=== PATIENT | female | born 1960 | race Caucasian/White ===

== ENCOUNTER 2016-06-11 10:17 | Emergency (ER) | payer OTHER ==
[~2016-06-11] VITALS: Wt 97.0 kg
[~2016-06-11 10:17] MED LIST: ACET1TAB40 PO; ACET325T33 PO; ALBU8.5H3 INH; AZIT250T94 PO; BENZ100C70 PO; CAPT25TA47 PO; CHOL100062 PO; IBUP-1542 PO; LEVO750T25 PO; LEVO88TA PO; METF500T4 PO; PARO40TA48 PO; PIOG30TA19 PO; PROM6.25 PO; SIMV40TA2 PO; TRAZ100T15 PO
[2016-06-11] MEDS ORDERED: HYDROCODONE/APAP (5/325) TAB PO ONE (12:00)
--- NOTE | 2016-06-11 12:51 | RADRPT ---
PROCEDURE: XR Humerus. CLINICAL INDICATION: Fell, pain. TECHNIQUE: AP and lateral views of the left humerus were performed. COMPARISON: None. FINDINGS: There is a comminuted, nondisplaced fracture through the surgical neck of the humerus with extension into the greater tuberosity. There is no significant angulation P IMPRESSION: 1. Nondisplaced, comminuted fracture of the surgical neck with extension into the greater tuberosit y. RPTAT: [facility] Physician Katie Date Time Electronically viewed and signed by Darren Ferguson Physician on 06/11/2016 12:51 /
--- NOTE | 2016-06-11 13:19 | RADRPT ---
PROCEDURE: US left upper extremity veins. CLINICAL INDICATION: Left arm pain and swelling. TECHNIQUE: Multiple longitudinal and transverse images of the left upper extremity venous tree was obtained with molina scale, pulsed Doppler, and color Doppler imaging. COMPARISON: None available FINDINGS: The left internal jugular, subclavian, axillary, brachial, basilic, cephalic, radial, and ulnar vein s are patent. There is normal flow with augmentation and compressibility throughout. There is no th rombus or occlusion. IMPRESSION: 1. Normal venous system of the left upper extremity. No evidence of thrombus or occlusion. RPTAT: QQ .Philippe Shetty MD, MD Date Time Electronically viewed and signed by .Philippe Shetty MD, on 06/11/2016 13:18 .R/
--- NOTE | 2016-06-11 13:20 | RADRPT ---
PROCEDURE: Ultrasound of the left upper arm. CLINICAL INDICATION: Palpable lesion in the left upper arm. TECHNIQUE: High-resolution sonography of the left upper arm at the site of the palpable lesion was performed in the axial and sagittal planes. COMPARISON: None FINDINGS: There is no fluid collection or mass. There is no abnormality at the site of the palpable lesion. IMPRESSION: 1. No abnormality at the site of the palpable lesion. 2. Any further management regarding the palpable lesion should be based on clinical grounds. RPTAT: QQ .Philippe Shetty MD, MD Date Time Electronically viewed and signed by .Philippe Shetty MD, on 06/11/2016 13:20 .R/
[2016-06-11] MEDS ORDERED: HYDR-906 PO (13:41)
--- NOTE | 2016-06-11 13:57 | ERD ---
ER Documentation Chief Complaint Date/Time DATE: 06/11/16 TIME: 13:45 Chief Complaint MECHANICAL FALL 06/07/16 HPI 55-year-old female complaining of left arm pain 5 days. Patient stated that she went on a cruise, on the first day when they were doing the safety/ evacuation drill, she tripped on a step and fell. She landed on her left side. She had obtained x-ray on board, and was told that there was no fracture. However, the imaging was not high-quality. She was given pain medications on the ship as well. Patient reports continued severe pain since then. The medication she was given had not helped. The pain is constant and throbbing. Denies numbness or tingling in her extremities. ROS All systems reviewed and are negative except as per history of present illness. Medications Home Meds Active Scripts Hydrocodone/Acetaminophen ([place] 5-325 Tablet) 1 Each Tablet, 1 TAB PO Q6H Y for PAIN, #7 TAB Prov:SVETA JACKSON SUPERVISOR BOARDING 06/11/16 Acetaminophen* (Tylenol*) 325 Mg Tablet, 2 TAB PO Q6 Y for PAIN AND OR ELEVATED TEMP, #20 TAB Prov:BERENICE GRAHAM PA-C 03/30/16 Albuterol Sulfate* (Proair HFA*) 8.5 Gm Hfa.aer.ad, 2 PUFF INH Q4, #1 INHALER Prov:BERENICE GRAHAM PA-C 03/30/16 Levofloxacin* (Levaquin*) 750 Mg Tablet, 750 MG PO DAILY for 5 Days, TAB Prov:BERENICE GRAHAM PA-C 03/30/16 Ibuprofen* (Motrin*) 600 Mg Tab, 600 MG PO Q6H Y for PAIN, #20 TAB Prov:SANTHOSH NOGUEIRA MD 05/24/15 Acetaminophen-Codeine* (Acetaminophen-Cod #3*) 300-30 Mg Tab, 1 TAB PO Q4H Y for PAIN, #14 TAB Prov:SANTHOSH NOGUEIRA MD 05/24/15 Promethazine w/Codeine* (Phenergan w/Codeine* Syrup) 5 Ml Syrup, 5 ML PO Q4H Y for COUGH, #4 OZ Prov:MARIAN DIAZ 11/26/14 Benzonatate* (Tessalon Perle*) 100 Mg Capsule, 200 MG PO Q8H Y for COUGH, #21 CAP Prov:MARIAN DIAZ 11/26/14 Azithromycin* (Zithromax*) 250 Mg Tablet, 250 MG PO .ZPACK DIRECTED, #6 TAB TAKE 500 MG (2 TABS) THE FIRST DAY THEN 250 MG (1 TAB) DAYS 2-5 Prov:MARIAN DIAZ 11/26/14 Reported Medications Cholecalciferol* (Vitamin D3*) 1,000 Unit Tablet, 1000 UNIT PO DAILY, TAB 11/26/14 Simvastatin* (Zocor*) 40 Mg Tablet, 40 MG PO HS, TAB 11/26/14 Paroxetine Hcl* (Paxil*) 40 Mg Tablet, 40 MG PO DAILY, TAB 11/26/14 Levothyroxine Sodium* (Synthroid*) 88 Mcg Tablet, 88 MCG PO DAILY, TAB 11/26/14 Captopril (Capoten) 25 Mg Tablet, 25 MG PO DAILY 03/20/13 Trazodone Hcl* (Trazodone Hcl*) 100 Mg Tablet, 100 MG PO HS 03/20/13 Pioglitazone Hcl* (Actos*) 30 Mg Tablet, 45 MG PO DAILY, 0 Refills 01/26/11 Metformin* (Glucophage*) 500 Mg Tab, 1000 MG PO BID, 0 Refills 01/26/11 Allergies Allergies: Coded Allergies: No Known Drug Allergies (Verified Allergy, Unknown, 11/26/14) PMhx/Soc History of type 2 diabetes, hyperthyroid. History of Surgery: Yes (BACK SURGERY FOR L 1 COMP FX ) Anesthesia Reaction: No Hx Neurological Disorder: No Hx Respiratory Disorders: No Hx Cardiac Disorders: Yes (HTN) Hx Psychiatric Problems: Yes (DEPRESSION, Anxiety) Hx Alcohol Use: No Hx Substance Use: No Hx Tobacco Use: No Physical Exam Vitals Vital Signs Date Time Temp Pulse Resp B/P Pulse Ox O2 Delivery O2 Flow Rate FiO2 06/11/16 10:20 98.0 101 18 166/99 98 Physical Exam General impression: Well-developed, well-nourished, 55-year-old female, alert, oriented. Appears to be in pain. Head: Normocephalic, atraumatic. Neck: Supple, nontender. No lymphanopathy. No nuchal rigidity. Respiration: Normal respiratory effort. Lungs clear to auscultate bilaterally. No wheezes, rales or rhonchi. Cardiovascular: Regular rate and rhythm. No murmurs or extra heart sounds. Back: Normal to inspection. Extremities: Large bruising noted in the medial left upper arm. Left shoulder, left elbow nontender. Left upper arm diffusely tender. Patient refused range of motion of the left shoulder. Left elbow range of motion normal. Left radial pulse 2+. Normal sensation in the left hand. Neuro: Mental status normal, speech normal. Skin: Normal turgor. No rash or lesions. Psych: Normal mood and affect. Results 24 hrs Current Medications Medications (Trade) Dose Ordered Sig/Natali Route PRN Reason Start Time Stop Time Status Last Admin Dose Admin Acetaminophen/ Hydrocodone Bitart ([place] (5/325)) 1 tab ONCE ONCE PO 06/11/16 12:00 06/11/16 12:01 DC 06/11/16 12:11 Procedures/MDM 55-year-old female presents to ED with left arm pain after fall. [place] 5/325 given to the patient in the ED for pain. X-ray of the left humerus showed a nondisplaced, comminuted fracture of the surgical neck with extension into the greater tuberosity. Soft tissue ultrasound of the left upper arm show no sign of large hematoma. Doppler ultrasound is negative for DVT of the left upper arm. The area of injury was immobilized with a sling. Patient was noted to be comfortable and neurovascularly intact both before and after the immobilization. Patient is advised to follow-up with her PCP for orthopedic referral. Patient appears well, stable for discharge and outpatient management. Medical decision making shared with patient and family. Education provided to patient and family. Patient and family expressed understanding of the plan. Medications on discharge: [place]. Follow-up: Primary care provider in 2-3 days or return to ED if worse. Departure Diagnosis: Primary Impression: Fracture of humeral head, left, closed Encounter type: initial encounter Qualified Code: S42.292A - Fracture of humeral head, left, closed, initial encounter Condition: Good Patient Instructions: Fracture, Upper Extremity Additional Instructions: SPECIALIST: YOU HAVE A MEDICAL CONDITION WHICH REQUIRES YOU TO SEE A SPECIALIST WITHIN THE NEXT 1-2 DAYS. PLEASE FOLLOW UP WITH YOUR PRIMARY PHYSICIAN FOR REFFERAL.IF YOU DO NOT HAVE A PRIMARY CARE PHYSICIAN AND/OR YOU CAN NOT AFFORD TO SEE A PHYSICIAN THE FOLLOWING RESOURCES HAVE BEEN SUPPLIED TO YOU. IT IS YOUR RESPONSIBILITY TO BE SEEN BY THE SPECIALIST SVETA JACKSON NP Jun 11, 2016 13:55
== END 2016-06-11 14:16 | disposition home or self-care (01) ==
LOC: FTE 10:17
DX: S42.355A Nondisplaced comminuted fracture of shaft of humerus, left arm, initial encounter for closed fracture (principal); I10 Essential (primary) hypertension; E11.9 Type 2 diabetes mellitus without complications; W01.0XXA Fall on same level from slipping, tripping and stumbling without subsequent striking against object, initial encounter; Y92.89 Other specified places as the place of occurrence of the external cause; Z79.84 Long term (current) use of oral hypoglycemic drugs
CPT/HCPCS: 73060; 76536; 93971; Z7502; Z7610; 99284

== ENCOUNTER 2016-08-07 11:16 | Emergency (ER) | payer OTHER ==
[~2016-08-07] VITALS: Ht 157.5 cm; Wt 89.0 kg
[~2016-08-07 11:16] MED LIST changes: +HYDR-906 PO
[2016-08-07 11:17] VITALS: Ht 157.5 cm; Wt 89.0 kg
[2016-08-07] MEDS ORDERED: IBUPROFEN 800 MG TAB PO ONE (12:30)
--- NOTE | 2016-08-07 13:00 | RADRPT ---
PROCEDURE: XR Chest. CLINICAL INDICATION: Chest pain. TECHNIQUE: Single frontal view of the chest was obtained COMPARISON: Chest x-ray 03/30/2016 1123 hours. FINDINGS: The soft tissues are normal. There are degenerative osteophytes in the thoracic spine. There is a suboptimal inspiratory effort. The heart has a transverse configuration. The cardiomediastinal marcia houette and hilar structures are normal. The pulmonary vasculature is normal allowing for poor inspi ration. There is a left-sided aorta. no acute infiltrate is identified. The costophrenic angles ar e normal. IMPRESSION: 1. There is no evidence of active cardiopulmonary disease allowing for poor inspiration. Stable rajesh st compared 03/30/2016. RPTAT:AAJJ Physician Alberto Date Time Electronically viewed and signed by Physician Alberto on 08/07/2016 12:59 /
[2016-08-07] MEDS ORDERED: HYDR-906 PO (13:56)
[2016-08-07] MEDS ORDERED: IBUP800T25 PO (13:56)
[2016-08-07] MEDS ORDERED: AZIT250T94 PO (13:57)
--- NOTE | 2016-08-07 14:02 | ERD ---
ER Documentation Chief Complaint Date/Time DATE: 08/07/16 TIME: 13:58 Chief Complaint cough,st HPI This is a 55-year-old female complains of clear productive sputum cough for the past 5 days. She has no fever no shortness of breath. She is also complaining of pain to her left upper costosternal margin area. She says the pain is sharp and worse with movement and cough and better with rest. She has no sore throat headache vomiting diarrhea dyspnea on exertion. No pain in the chest with exertion. The area of the left chest does not get worse with exertion. ROS All systems reviewed and are negative except as per history of present illness. Medications Home Meds Active Scripts Azithromycin* (Zithromax*) 250 Mg Tablet, 250 MG PO .ConsueloPACK DIRECTED, #6 TAB TAKE 500 MG (2 TABS) THE FIRST DAY THEN 250 MG (1 TAB) DAYS 2-5 Prov:IVETH MORALEZ DO 08/07/16 Hydrocodone/Acetaminophen ([place] 5-325 Tablet) 1 Each Tablet, 1 EACH PO q 4-6 hours, #14 TAB Prov:IVETH MORALEZ DO 08/07/16 Ibuprofen* (Motrin*) 800 Mg Tab, 800 MG PO Q6H Y for PAIN AND OR ELEVATED TEMP, #30 TAB Prov:ANTONINO MORALEZS Agustin. DO 08/07/16 Hydrocodone/Acetaminophen ([place] 5-325 Tablet) 1 Each Tablet, 1 TAB PO Q6H Y for PAIN, #7 TAB Prov:SVETA JACKSON CLINICAL BUSINESS MANAGER 06/11/16 Acetaminophen* (Tylenol*) 325 Mg Tablet, 2 TAB PO Q6 Y for PAIN AND OR ELEVATED TEMP, #20 TAB Prov:BERENICE GRAHAM PA-C 03/30/16 Albuterol Sulfate* (Proair HFA*) 8.5 Gm Hfa.aer.ad, 2 PUFF INH Q4, #1 INHALER Prov:BERENICE GARHAM PA-C 03/30/16 Levofloxacin* (Levaquin*) 750 Mg Tablet, 750 MG PO DAILY for 5 Days, TAB Prov:BERENICE GRAHAM PA-C 03/30/16 Ibuprofen* (Motrin*) 600 Mg Tab, 600 MG PO Q6H Y for PAIN, #20 TAB Prov:SANTHOSH NOGUEIRA MD 05/24/15 Acetaminophen-Codeine* (Acetaminophen-Cod #3*) 300-30 Mg Tab, 1 TAB PO Q4H Y for PAIN, #14 TAB Prov:SANTHOSH NOGUEIRA MD 05/24/15 Promethazine w/Codeine* (Phenergan w/Codeine* Syrup) 5 Ml Syrup, 5 ML PO Q4H Y for COUGH, #4 OZ Prov:CHO,MARIAN 11/26/14 Benzonatate* (Tessalon Perle*) 100 Mg Capsule, 200 MG PO Q8H Y for COUGH, #21 CAP Prov:CHO,MARIAN 11/26/14 Azithromycin* (Zithromax*) 250 Mg Tablet, 250 MG PO .ZPACK DIRECTED, #6 TAB TAKE 500 MG (2 TABS) THE FIRST DAY THEN 250 MG (1 TAB) DAYS 2-5 Prov:CHO,MARIAN 11/26/14 Reported Medications Cholecalciferol* (Vitamin D3*) 1,000 Unit Tablet, 1000 UNIT PO DAILY, TAB 11/26/14 Simvastatin* (Zocor*) 40 Mg Tablet, 40 MG PO HS, TAB 11/26/14 Paroxetine Hcl* (Paxil*) 40 Mg Tablet, 40 MG PO DAILY, TAB 11/26/14 Levothyroxine Sodium* (Synthroid*) 88 Mcg Tablet, 88 MCG PO DAILY, TAB 11/26/14 Captopril (Capoten) 25 Mg Tablet, 25 MG PO BID 03/20/13 Trazodone Hcl* (Trazodone Hcl*) 100 Mg Tablet, 50 MG PO HS 03/20/13 Metformin* (Glucophage*) 500 Mg Tab, 1000 MG PO BID, 0 Refills 01/26/11 Discontinued Reported Medications Pioglitazone Hcl* (Actos*) 30 Mg Tablet, 45 MG PO DAILY, 0 Refills 01/26/11 Allergies Allergies: Coded Allergies: No Known Drug Allergies (Verified Allergy, Unknown, 08/07/16) PMhx/Soc History of Surgery: Yes (BACK SURGERY FOR L 1 COMP FX ) Anesthesia Reaction: No Hx Neurological Disorder: No Hx Respiratory Disorders: No Hx Cardiac Disorders: Yes (HTN) Hx Psychiatric Problems: Yes (DEPRESSION, Anxiety) Hx Alcohol Use: No Hx Substance Use: No Hx Tobacco Use: No Smoking Status: Never smoker FmHx Family History: No coronary disease Physical Exam Vitals Vital Signs Date Time Temp Pulse Resp B/P Pulse Ox O2 Delivery O2 Flow Rate FiO2 08/07/16 12:41 85 22 139/85 97 Room Air 08/07/16 11:17 98.1 61 18 116/61 99 Physical Exam Const: Well-developed, well-nourished Head: Atraumatic, normocephalic Eyes: Normal Conjunctiva, PERRLA, EOMI, normal sclera, no nystagmus ENT: Normal External Ears, Nose and Mouth, moist mucus membranes. Neck: Full range of motion. No meningismus, no lymphadenopathy. Resp: Clear to auscultation bilaterally, no wheezing, rhonchi, rales, there is reproducible moderate to severe chest pain to the costo sternal margin of ribs 1 2 and 3 on the left. The pain is reproducible to palpation and with twisting of the trunk. Also pushing on the posterior left rib cage on the same ribs will induce the anterior left pain as she described in the history. Cardio: Regular rate and rhythm, no murmurs, S1 S2 present Abd: Soft, non tender x 4, non distended. Normal bowel sounds, no guarding or rebound, no pulsitile abdominal masses or bruits Skin: No petechiae or rashes, no ecchymosis , no maculopapular rash Back: No midline or flank tenderness Ext: No cyanosis, or edema, FROM x 4, normal inspection, neurovascularly intact x 4 Neur: Awake and alert, STR 5/5 x 4, sensation intact x 4, no focal findings, cerebellum intact Psych: Normal Mood and Affect Results 24 hrs Laboratory Tests Test 08/07/16 12:25 Troponin I < 0.012ng/ml Current Medications Medications (Trade) Dose Ordered Sig/Natali Route PRN Reason Start Time Stop Time Status Last Admin Dose Admin Ibuprofen (Motrin) 800 mg ONCE ONCE PO 08/07/16 12:30 08/07/16 12:31 DC 08/07/16 12:49 Procedures/MDM EKG: Rate/Rhythm: Normal Sinus Rhythm,NL intervals QRS, ST, QT: NORMAL MS, QRS, QT] Impression: NORMAL EKG PROCEDURE: XR Chest. CLINICAL INDICATION: Chest pain. TECHNIQUE: Single frontal view of the chest was obtained COMPARISON: Chest x-ray 03/30/2016 1123 hours. FINDINGS: The soft tissues are normal. There are degenerative osteophytes in the thoracic spine. There is a suboptimal inspiratory effort. The heart has a transverse configuration. The cardiomediastinal silhouette and hilar structures are normal. The pulmonary vasculature is normal allowing for poor inspiration. There is a left-sided aorta. no acute infiltrate is identified. The costophrenic angles are normal. IMPRESSION: 1. There is no evidence of active cardiopulmonary disease allowing for poor inspiration. Stable chest compared 03/30/2016. RPTAT:AAJJ Atilio Contreras Physician Date Time Electronically viewed and signed by Atilio Contreras Physician on 08/07/2016 12:59 JM/ CC: IVETH MORALEZ DO Patient's troponin is negative I feel the patient's pain is clearly musculoskeletal in nature and not cardiac. EKG is negative, troponin is negative, pain is nonexertional. Pain is reproducible with cough and turning and outpatient. After Motrin the patient states she feels much better there is much less tenderness upon palpation to this area afterwards Departure Diagnosis: Primary Impression: Costochondritis Additional Impression: Upper respiratory infection URI type: unspecified viral URI Qualified Code: J06.9 - Viral upper respiratory tract infection Condition: Stable Patient Instructions: Chest Wall Pain, Costochondritis, Uri, Viral, No Abx ( Adult) IVETH MORALEZ DO Aug 07, 2016 14:02
[2016-08-07 14:37] VITALS: BP 143/86; PULSE 88; RESP 20; TEMP 98.1
== END 2016-08-07 14:39 | disposition home or self-care (01) ==
LOC: FTE 11:16 → E/R 14:39
DX: M94.0 Chondrocostal junction syndrome [Tietze] (principal); J06.9 Acute upper respiratory infection, unspecified; I10 Essential (primary) hypertension; E11.9 Type 2 diabetes mellitus without complications; Z79.84 Long term (current) use of oral hypoglycemic drugs
CPT/HCPCS: 71010; 84484; 93005; Z7610

== ENCOUNTER 2017-10-20 19:10 | Emergency (ER) | END 2017-10-20 23:43 | disposition home or self-care (01) ==